=== PATIENT | female | born 1950 | race Caucasian/White ===

== ENCOUNTER 2021-12-19 09:22 | Inpatient (IN) ==
[2021-12-19 09:49] LABS: Hematocrit 29 % (35-47); Mean Corpuscular HGB Conc 34 g/dL (31-36); Mean Corpuscular Hemoglobin 33 pg (27-31); Mean Corpuscular Volume 97 fL (80-97); Mean Platelet Volume 6.9 fL (7.4-10.4); Platelet Count 115 10^3/uL (150-450); Red Blood Count 3.04 10^6 /uL (3.70-4.87); Red Cell Distribution Width 16 % (10-15); White Blood Count 2.5 10^3/uL (3.5-10.8)
[2021-12-19] MEDS ORDERED: Albuterol/Ipratropium NEB.SOL (2.5/0.5 MG) 3 ML NEB.SOLN INH ONE ×2 (09:54)
[2021-12-19] MEDS ORDERED: Lactated Ringers 1000 ml BAG 1,000 ML IV ONE (09:55)
[2021-12-19] MEDS ORDERED: methylPREDNISolone SOD SUCC 40 mg/ml 1 ml VIAL IV ONE (09:55)
[2021-12-19 10:34] LABS: Activated Partial Thrombo Time 24.5 seconds (26.0-38.0); INR 0.94 (0.89-1.11)
[2021-12-19 10:38] LABS: ABS Lymphocytes 0.2 10^3/ul (1.0-4.8); ABS Monocytes 0.3 10^3/ul (0-0.8); ABS Neutrophils 2.1 10^3/ul (1.5-7.7); Eosinophil % 0.1 %; Lymphocyte % 7.8 %; Nucleated Red Blood Cells % 0.1
[2021-12-19 10:40] LABS: Albumin 3.8 g/dL (3.2-5.2); Albumin/Globulin Ratio 1.5 (1-3); Calcium 7.9 mg/dL (8.6-10.3); Globulin 2.5 g/dL (2-4); Potassium 3.5 mmol/L (3.5-5.0); Total Bilirubin 0.4 mg/dL (0.2-1.0); Total Protein 6.3 g/dL (6.4-8.9); eGFR CKD-EPI 82.9 (>60)
[2021-12-19] MEDS ORDERED: Iohexol 350 (CONTRAST) 500 ML MDV IV ONE (11:02)
[2021-12-19 11:33] LABS: High Sensitivity Troponin 1 Hr 13 pg/mL (<15)
[2021-12-19 11:47] LABS: PCO2 Arterial 45 mmHg (35-45); PO2 Arterial 179 mmHg (80-100)
[2021-12-19] MEDS ORDERED: NS 0.9% 1000 ml BAG 1,000 ML IV SCH (14:15)
[2021-12-19] MEDS: Enoxaparin 40 MG/0.4 ML SYR SUBCUT SCH (15:59)
[2021-12-19] MEDS: cefTRIAXone 1 gm/50 mL D5W 1 GM/50 ML BAG IV SCH (16:00)
[2021-12-19] MEDS: Azithromycin 500 mg/250 ml NS 500 MG/250 ML BAG IVPB SCH (16:51)
[2021-12-19] MEDS: methylPREDNISolone SOD SUCC 40 mg/ml 1 ml VIAL IV SCH (21:04)
[2021-12-19] MEDS: Timolol 0.5% OPTH.SOL BTL BOTH EYES SCH (21:11)
[2021-12-19] MEDS: Mometasone/Formoter 200/5 MDI INH SCH (21:17)
[2021-12-20 02:58] LABS: Urine Bacteria Absent (Absent); Urine Red Blood Cell 1+(3-5/hpf) (Absent); Urine Squamous Epithelial Cell Present (Absent); Urine White Blood Cell Trace(0-5/hpf) (Absent)
[2021-12-20 03:22] LABS: Urine Appearance Clear; Urine Bilirubin Negative (Negative); Urine Blood Negative (Negative); Urine Color Yellow; Urine Glucose Negative (Negative); Urine Ketones 1+ (Negative); Urine Nitrite Negative (Negative); Urine Protein 1+(30 mg/dL) (Negative); Urine Specific Gravity 1.018 (1.002-1.030); Urine Urobilinogen Negative (Negative)
[2021-12-20 04:56] LABS: Hematocrit 29 % (35-47); Hemoglobin 9.5 g/dL (12.0-16.0); Mean Corpuscular HGB Conc 33 g/dL (31-36); Mean Corpuscular Hemoglobin 33 pg (27-31); Mean Corpuscular Volume 98 fL (80-97); Platelet Count 103 10^3/uL (150-450); Red Blood Count 2.93 10^6 /uL (3.70-4.87); Red Cell Distribution Width 16 % (10-15); White Blood Count 4.3 10^3/uL (3.5-10.8)
[2021-12-20 05:09] LABS: Calcium 8.1 mg/dL (8.6-10.3)
[2021-12-20 05:14] LABS: eGFR CKD-EPI 89.9 (>60)
[2021-12-20 05:43] LABS: ABS Lymphocytes 0.1 10^3/ul (1.0-4.8); ABS Monocytes 0.2 10^3/ul (0-0.8); Nucleated Red Blood Cells % 0.4
[2021-12-20] MEDS: Mometasone/Formoter 200/5 MDI INH SCH ×2 (08:28→20:11)
[2021-12-20] MEDS: Timolol 0.5% OPTH.SOL BTL BOTH EYES SCH ×2 (08:58→21:00)
[2021-12-20] MEDS: methylPREDNISolone SOD SUCC 40 mg/ml 1 ml VIAL IV SCH ×2 (09:00→21:04)
[2021-12-20] MEDS ORDERED: Aspirin EC 81 mg TAB.EC (enteric coated) PO SCH (09:00)
[2021-12-20] MEDS ORDERED: Albuterol/Ipratropium NEB.SOL (2.5/0.5 MG) 3 ML NEB.SOLN INH PRN (12:59)
[2021-12-20] MEDS: cefTRIAXone 1 gm/50 mL D5W 1 GM/50 ML BAG IV SCH (16:17)
[2021-12-20] MEDS: Enoxaparin 40 MG/0.4 ML SYR SUBCUT SCH (16:18)
[2021-12-20] MEDS: Azithromycin 500 mg/250 ml NS 500 MG/250 ML BAG IVPB SCH (17:31)
[2021-12-20] MEDS: Albuterol/Ipratropium NEB.SOL (2.5/0.5 MG) 3 ML NEB.SOLN INH SCH (20:10)
[2021-12-20] MEDS ORDERED: Ondansetron ODT 4 mg TAB 4 MG TAB SL PRN (22:44)
[2021-12-21 04:58] LABS: Hematocrit 26 % (35-47); Hemoglobin 8.9 g/dL (12.0-16.0); Mean Corpuscular HGB Conc 34 g/dL (31-36); Mean Corpuscular Hemoglobin 33 pg (27-31); Mean Corpuscular Volume 97 fL (80-97); Red Blood Count 2.72 10^6 /uL (3.70-4.87); Red Cell Distribution Width 16 % (10-15)
[2021-12-21 05:22] LABS: ABS Lymphocytes 0.1 10^3/ul (1.0-4.8); ABS Monocytes 0.2 10^3/ul (0-0.8); ABS Neutrophils 3.8 10^3/ul (1.5-7.7); Lymphocyte % 1.9 %; Mean Platelet Volume 7.2 fL (7.4-10.4); Platelet Count 86 10^3/uL (150-450)
[2021-12-21] MEDS: Albuterol/Ipratropium NEB.SOL (2.5/0.5 MG) 3 ML NEB.SOLN INH SCH ×2 (07:07→19:17)
[2021-12-21] MEDS: Mometasone/Formoter 200/5 MDI INH SCH ×2 (07:09→19:17)
[2021-12-21] MEDS: methylPREDNISolone SOD SUCC 40 mg/ml 1 ml VIAL IV SCH ×2 (08:44→20:55)
[2021-12-21] MEDS: Timolol 0.5% OPTH.SOL BTL BOTH EYES SCH ×2 (09:24→21:00)
[2021-12-21] MEDS: cefTRIAXone 1 gm/50 mL D5W 1 GM/50 ML BAG IV SCH (14:51)
[2021-12-21] MEDS: Enoxaparin 40 MG/0.4 ML SYR SUBCUT SCH (14:51)
[2021-12-21] MEDS: Azithromycin 500 mg/250 ml NS 500 MG/250 ML BAG IVPB SCH (16:58)
[2021-12-22 05:14] LABS: ABS Lymphocytes 0.1 10^3/ul (1.0-4.8); ABS Monocytes 0.3 10^3/ul (0-0.8); ABS Neutrophils 3.6 10^3/ul (1.5-7.7); Hematocrit 26 % (35-47); Hemoglobin 8.8 g/dL (12.0-16.0); Lymphocyte % 2.6 %; Mean Corpuscular HGB Conc 34 g/dL (31-36); Mean Corpuscular Hemoglobin 33 pg (27-31); Mean Corpuscular Volume 97 fL (80-97); Platelet Count 72 10^3/uL (150-450); Red Cell Distribution Width 16 % (10-15); White Blood Count 3.9 10^3/uL (3.5-10.8)
[2021-12-22 06:03] LABS: eGFR CKD-EPI 105.8 (>60)
[2021-12-22 06:09] LABS: Calcium 6.1 mg/dL (8.6-10.3)
[2021-12-22] MEDS: Albuterol/Ipratropium NEB.SOL (2.5/0.5 MG) 3 ML NEB.SOLN INH SCH (07:06)
[2021-12-22] MEDS: Mometasone/Formoter 200/5 MDI INH SCH (07:07)
[2021-12-22 07:32] LABS: Calcium 8.4 mg/dL (8.6-10.3); Potassium 3.9 mmol/L (3.5-5.0); eGFR CKD-EPI 96.5 (>60)
[2021-12-22] MEDS: Timolol 0.5% OPTH.SOL BTL BOTH EYES SCH (08:14)
[2021-12-22] MEDS: methylPREDNISolone SOD SUCC 40 mg/ml 1 ml VIAL IV SCH (08:14)
[2021-12-22 08:43] VITALS: BP 160/82
== END 2021-12-22 11:45 | disposition home or self-care (01) | DRG 193 ==
LOC: EDHOLD 09:22 → ED 09:22 → SUATTDRO 14:06 → MED 16:58
PROVIDERS: ADMIT Internal Medicine; ATTEND Hospitalist

== ENCOUNTER 2022-01-02 10:49 | Observation (INO) ==
[2022-01-02] MEDS ORDERED: Levalbuterol 1.25MG/0.5ML NEB.SOL ONE (11:08)
[2022-01-02] MEDS ORDERED: Levalbuterol 1.25MG/0.5ML NEB.SOL INH ONE ×2 (11:10→14:34)
[2022-01-02 12:06] LABS: ABS Lymphocytes 0.4 10^3/ul (1.0-4.8); ABS Monocytes 0.5 10^3/ul (0-0.8); ABS Neutrophils 5.3 10^3/ul (1.5-7.7); Hematocrit 32 % (35-47); Lymphocyte % 5.9 %; Mean Corpuscular HGB Conc 34 g/dL (31-36); Mean Corpuscular Hemoglobin 34 pg (27-31); Mean Corpuscular Volume 99 fL (80-97); Mean Platelet Volume 8.2 fL (7.4-10.4); Nucleated Red Blood Cells % 0.2; Platelet Count 99 10^3/uL (150-450); Red Blood Count 3.24 10^6 /uL (3.70-4.87); Red Cell Distribution Width 17 % (10-15); White Blood Count 6.2 10^3/uL (3.5-10.8)
[2022-01-02 12:19] LABS: Albumin 3.6 g/dL (3.2-5.2); Albumin/Globulin Ratio 1.5 (1-3); Calcium 8.3 mg/dL (8.6-10.3); Globulin 2.4 g/dL (2-4); Magnesium 1.6 mg/dL (1.9-2.7); Potassium 3.1 mmol/L (3.5-5.0); Total Bilirubin 0.7 mg/dL (0.2-1.0); eGFR CKD-EPI 93.3 (>60)
[2022-01-02] MEDS ORDERED: Magnesium Sulfate 2 gm BAG 2 GM/50 ML BAG IVPB ONE ×2 (12:46→16:16)
[2022-01-02] MEDS ORDERED: methylPREDNISolone SOD SUCC 125 mg 2 ML VIAL IV ONE (12:46)
[2022-01-02] MEDS ORDERED: Iohexol 350 (CONTRAST) 500 ML MDV IV ONE (12:59)
[2022-01-02 14:29] LABS: Urine Appearance Clear; Urine Bilirubin Negative (Negative); Urine Blood Negative (Negative); Urine Color Yellow; Urine Glucose Negative (Negative); Urine Ketones Negative (Negative); Urine Nitrite Negative (Negative); Urine Protein Negative (Negative); Urine Urobilinogen Negative (Negative)
[2022-01-02 15:43] LABS: High Sensitivity Troponin 1 Hr 24 pg/mL (<15)
[2022-01-02] MEDS ORDERED: Magnesium Hydroxide LIQ 30 ML UDC PO PRN (16:04)
[2022-01-02] MEDS ORDERED: Potassium Chlor 20 meq TAB.ER PO ONE (16:15)
[2022-01-02 16:47] LABS: C Reactive Protein 11.93 mg/L (<8.01)
[2022-01-02] MEDS ORDERED: Albuterol 2.5mg/3 ml (0.083%) NEB.SOLN INH PRN ×2 (16:50→16:51)
[2022-01-02] MEDS ORDERED: Senna TAB 8.6 mg TAB PO PRN (16:50)
[2022-01-02 16:53] LABS: Urine Specific Gravity > 1.060 (1.002-1.030)
[2022-01-02] MEDS ORDERED: NS 0.9% 1000 ml BAG 1,000 ML IV SCH (17:15)
[2022-01-02] MEDS: Enoxaparin 30 MG/0.3 ML SYR SUBCUT SCH (19:38)
[2022-01-02] MEDS: Fluticasone NASAL SPRAY 50MCG 16 gm SPRAY BTL BOTH NARES SCH (20:34)
[2022-01-02] MEDS: Mometasone/Formoter 200/5 MDI INH SCH (20:35)
[2022-01-02] MEDS: Timolol 0.5% OPTH.SOL BTL BOTH EYES SCH (20:36)
[2022-01-02 23:52] LABS: Venous Bicarbonate HCO3 26.6 mmol/L (24-28)
[2022-01-03 07:05] LABS: ABS Lymphocytes 0.3 10^3/ul (1.0-4.8); ABS Monocytes 0.3 10^3/ul (0-0.8); ABS Neutrophils 3.2 10^3/ul (1.5-7.7); Hematocrit 29 % (35-47); Hemoglobin 9.8 g/dL (12.0-16.0); Lymphocyte % 7.8 %; Mean Corpuscular HGB Conc 34 g/dL (31-36); Mean Corpuscular Hemoglobin 34 pg (27-31); Mean Corpuscular Volume 100 fL (80-97); Mean Platelet Volume 7.7 fL (7.4-10.4); Nucleated Red Blood Cells % 0.1; Platelet Count 88 10^3/uL (150-450); Red Blood Count 2.92 10^6 /uL (3.70-4.87); Red Cell Distribution Width 18 % (10-15); White Blood Count 3.7 10^3/uL (3.5-10.8)
[2022-01-03] MEDS: Mometasone/Formoter 200/5 MDI INH SCH ×2 (07:17→19:41)
[2022-01-03 07:22] LABS: Calcium 8.5 mg/dL (8.6-10.3); Magnesium 2.3 mg/dL (1.9-2.7); Potassium 4.8 mmol/L (3.5-5.0)
[2022-01-03] MEDS: Timolol 0.5% OPTH.SOL BTL BOTH EYES SCH ×2 (09:09→21:40)
[2022-01-03] MEDS: Fluticasone NASAL SPRAY 50MCG 16 gm SPRAY BTL BOTH NARES SCH (09:09)
[2022-01-03] MEDS: Enoxaparin 30 MG/0.3 ML SYR SUBCUT SCH (18:16)
[2022-01-04 07:55] LABS: ABS Lymphocytes 0.5 10^3/ul (1.0-4.8); ABS Monocytes 0.3 10^3/ul (0-0.8); ABS Neutrophils 1.6 10^3/ul (1.5-7.7); Eosinophil % 0.2 %; Hematocrit 29 % (35-47); Hemoglobin 9.7 g/dL (12.0-16.0); Mean Corpuscular HGB Conc 34 g/dL (31-36); Mean Corpuscular Hemoglobin 34 pg (27-31); Mean Corpuscular Volume 99 fL (80-97); Mean Platelet Volume 7.7 fL (7.4-10.4); Platelet Count 88 10^3/uL (150-450); Red Blood Count 2.87 10^6 /uL (3.70-4.87); Red Cell Distribution Width 17 % (10-15); White Blood Count 2.4 10^3/uL (3.5-10.8)
[2022-01-04 07:57] LABS: Calcium 8.4 mg/dL (8.6-10.3); Magnesium 1.7 mg/dL (1.9-2.7); Potassium 3.7 mmol/L (3.5-5.0)
[2022-01-04] MEDS: Mometasone/Formoter 200/5 MDI INH SCH (08:17)
[2022-01-04] MEDS ORDERED: Saline NASAL SPRAY 0.65% BTL BOTH NARES ONE (08:57)
[2022-01-04] MEDS: Fluticasone NASAL SPRAY 50MCG 16 gm SPRAY BTL BOTH NARES SCH (09:56)
[2022-01-04] MEDS: Timolol 0.5% OPTH.SOL BTL BOTH EYES SCH (09:58)
[2022-01-04 10:52] VITALS: BP 144/76
[2022-01-04] MEDS ORDERED: Saline NASAL SPRAY 0.65% BTL BOTH NARES PRN (13:00)
== END 2022-01-04 12:47 | disposition home or self-care (01) ==
LOC: ED 10:49 → MED 10:49 → SUATTDRO 16:04 → MED 22:36
PROVIDERS: ADMIT Student in an Organized Health Care Education/Training Program; ATTEND Hospitalist

== ENCOUNTER 2022-01-08 18:48 | Inpatient (IN) ==
[2022-01-08] MEDS ORDERED: Lactated Ringers 1000 ml BAG 1,000 ML IV ONE (19:20)
[2022-01-08 20:00] LABS: ABS Lymphocytes 0.2 10^3/ul (1.0-4.8); ABS Monocytes 0.2 10^3/ul (0-0.8); ABS Neutrophils 3.4 10^3/ul (1.5-7.7); Hematocrit 27 % (35-47); Lymphocyte % 4.2 %; Mean Corpuscular HGB Conc 33 g/dL (31-36); Mean Corpuscular Hemoglobin 33 pg (27-31); Mean Corpuscular Volume 100 fL (80-97); Mean Platelet Volume 7.9 fL (7.4-10.4); Nucleated Red Blood Cells % 0.2; Platelet Count 82 10^3/uL (150-450); Red Blood Count 2.72 10^6 /uL (3.70-4.87); Red Cell Distribution Width 18 % (10-15); White Blood Count 3.7 10^3/uL (3.5-10.8)
[2022-01-08 20:01] LABS: Urine Appearance Clear; Urine Bilirubin Negative (Negative); Urine Blood 1+ (Negative); Urine Color Yellow; Urine Glucose Negative (Negative); Urine Ketones Negative (Negative); Urine Nitrite Negative (Negative); Urine Protein 1+(30 mg/dL) (Negative); Urine Urobilinogen Negative (Negative)
[2022-01-08 20:09] LABS: Urine Bacteria Absent (Absent); Urine Red Blood Cell 2+(6-10/hpf) (Absent); Urine Squamous Epithelial Cell Present (Absent); Urine White Blood Cell 1+(6-10/hpf) (Absent)
[2022-01-08 20:12] LABS: Activated Partial Thrombo Time 24.5 seconds (26.0-38.0); INR 1.03 (0.89-1.11)
[2022-01-08 21:06] LABS: Albumin 3.2 g/dL (3.2-5.2); Albumin/Globulin Ratio 1.4 (1-3); C Reactive Protein 276.28 mg/L (<8.01); Calcium 8.7 mg/dL (8.6-10.3); Globulin 2.3 g/dL (2-4); Potassium 4.1 mmol/L (3.5-5.0); Total Bilirubin 0.4 mg/dL (0.2-1.0); Total Protein 5.5 g/dL (6.4-8.9)
[2022-01-08] MEDS ORDERED: Iohexol 350 (CONTRAST) 500 ML MDV IV ONE (21:12)
[2022-01-08 21:36] LABS: High Sensitivity Troponin 1 Hr 9 pg/mL (<15)
[2022-01-09] MEDS ORDERED: Saline NASAL SPRAY 0.65% BTL BOTH NARES PRN (00:55)
[2022-01-09] MEDS ORDERED: Albuterol HFA INHALER 8 gm MDI INH PRN (00:56)
[2022-01-09] MEDS: Enoxaparin 40 MG/0.4 ML SYR SUBCUT SCH ×2 (01:20→20:57)
[2022-01-09] MEDS ORDERED: NS 0.9% 500 ml BAG 500 ML IV ONE (02:15)
[2022-01-09] MEDS ORDERED: Labetalol IV 5 MG/ML 20 ml VIAL IV PUSH ONE (02:22)
[2022-01-09] MEDS ORDERED: Morphine 2 MG/ML SYRINGE IV PRN (04:17)
[2022-01-09] MEDS: Mometasone/Formoter 200/5 MDI INH SCH ×2 (07:06→20:30)
[2022-01-09] MEDS: Fluticasone NASAL SPRAY 50MCG 16 gm SPRAY BTL BOTH NARES SCH (07:49)
[2022-01-09] MEDS: Timolol 0.5% OPTH.SOL BTL BOTH EYES SCH ×2 (07:50→20:57)
[2022-01-09] MEDS ORDERED: cefTRIAXone 2 gm/50 mL D5W 2 GM/50 ML BAG IV SCH (09:00)
[2022-01-09] MEDS ORDERED: Gadoteridol (CONTRAST) 279.3 MG/ML 10 ML IV ONE (11:36)
[2022-01-09 12:46] LABS: ABS Lymphocytes 0.1 10^3/ul (1.0-4.8); ABS Monocytes 0.2 10^3/ul (0-0.8); Eosinophil % 0.1 %; Hematocrit 26 % (35-47); Hemoglobin 8.6 g/dL (12.0-16.0); Lymphocyte % 3.1 %; Mean Corpuscular HGB Conc 33 g/dL (31-36); Mean Corpuscular Hemoglobin 33 pg (27-31); Mean Corpuscular Volume 100 fL (80-97); Mean Platelet Volume 7.9 fL (7.4-10.4); Platelet Count 73 10^3/uL (150-450); Red Blood Count 2.57 10^6 /uL (3.70-4.87); Red Cell Distribution Width 18 % (10-15); White Blood Count 4.4 10^3/uL (3.5-10.8)
[2022-01-09 13:13] LABS: Calcium 7.8 mg/dL (8.6-10.3); Potassium 3.6 mmol/L (3.5-5.0); eGFR CKD-EPI 94.3 (>60)
[2022-01-09] MEDS ORDERED: Senna TAB 8.6 mg TAB PO PRN (15:45)
[2022-01-09] MEDS ORDERED: Polyethylene Glycol 3350 17 GM PACKET PO PRN (15:45)
[2022-01-09] MEDS ORDERED: Iohexol 350 (CONTRAST) 500 ML MDV IV ONE (16:04)
[2022-01-09] MEDS: Lidocaine PATCH 5% PATCH TRANSDERM PRN (17:39)
[2022-01-09] MEDS: Oxacillin 2 GM in NS 0.9% 100 ml BAG 100 ML IVPB SCH ×2 (17:51→20:57)
[2022-01-10] MEDS: Oxacillin 2 GM in NS 0.9% 100 ml BAG 100 ML IVPB SCH ×6 (02:14→21:14)
[2022-01-10 06:42] LABS: ABS Lymphocytes 0.3 10^3/ul (1.0-4.8); ABS Monocytes 0.2 10^3/ul (0-0.8); ABS Neutrophils 3.5 10^3/ul (1.5-7.7); Eosinophil % 0.3 %; Hematocrit 24 % (35-47); Hemoglobin 8.2 g/dL (12.0-16.0); Lymphocyte % 8.1 %; Mean Corpuscular HGB Conc 34 g/dL (31-36); Mean Corpuscular Hemoglobin 34 pg (27-31); Mean Corpuscular Volume 99 fL (80-97); Mean Platelet Volume 8.4 fL (7.4-10.4); Nucleated Red Blood Cells % 0.1; Platelet Count 71 10^3/uL (150-450); Red Blood Count 2.41 10^6 /uL (3.70-4.87); Red Cell Distribution Width 18 % (10-15); White Blood Count 4.1 10^3/uL (3.5-10.8)
[2022-01-10 06:55] LABS: Anion Gap 8 mmol/L (2-11); Blood Urea Nitrogen 11 mg/dL (6-24); CO2 Carbon Dioxide 26 mmol/L (22-32); Chloride 103 mmol/L (101-111); Glucose 80 mg/dL (70-100); Magnesium 1.2 mg/dL (1.9-2.7); Potassium 3.2 mmol/L (3.5-5.0); Sodium 137 mmol/L (135-145); eGFR CKD-EPI 96.1 (>60)
[2022-01-10 07:20] LABS: Folate 16.56 ng/mL (5.90-24.80)
[2022-01-10 07:21] LABS: Vitamin B12 > 1450 pg/mL (180-914)
[2022-01-10] MEDS: Mometasone/Formoter 200/5 MDI INH SCH ×2 (07:22→19:41)
[2022-01-10] MEDS ORDERED: Potassium Chlor 20 meq TAB.ER PO ONE (08:12)
[2022-01-10] MEDS ORDERED: Magnesium Sulfate IV 3 GM in NS 0.9% 100 ml BAG 100 ML IVPB ONE (08:12)
[2022-01-10] MEDS: Fluticasone NASAL SPRAY 50MCG 16 gm SPRAY BTL BOTH NARES SCH (09:46)
[2022-01-10] MEDS: Timolol 0.5% OPTH.SOL BTL BOTH EYES SCH ×2 (09:47→21:14)
[2022-01-10] MEDS: Lidocaine PATCH 5% PATCH TRANSDERM PRN (11:21)
[2022-01-10] MEDS: Enoxaparin 40 MG/0.4 ML SYR SUBCUT SCH (20:53)
[2022-01-10] MEDS: Morphine 2 MG/ML SYRINGE IV PRN (22:20)
[2022-01-11] MEDS: Oxacillin 2 GM in NS 0.9% 100 ml BAG 100 ML IVPB SCH ×5 (01:11→18:23)
[2022-01-11 07:13] LABS: C Reactive Protein 357.94 mg/L (<8.01)
[2022-01-11] MEDS: Mometasone/Formoter 200/5 MDI INH SCH ×2 (07:29→19:44)
[2022-01-11] MEDS: Timolol 0.5% OPTH.SOL BTL BOTH EYES SCH ×2 (08:09→19:56)
[2022-01-11] MEDS: Fluticasone NASAL SPRAY 50MCG 16 gm SPRAY BTL BOTH NARES SCH (08:09)
[2022-01-11 08:40] LABS: Calcium 7.7 mg/dL (8.6-10.3); Magnesium 1.6 mg/dL (1.9-2.7); Potassium 3.5 mmol/L (3.5-5.0)
[2022-01-11 08:46] LABS: eGFR CKD-EPI 96.9 (>60)
[2022-01-11] MEDS ORDERED: Magnesium Sulfate 2 gm BAG 2 GM/50 ML BAG IVPB ONE (10:13)
[2022-01-11] MEDS ORDERED: Naloxone 0.4 mg VIAL 0.4 mg/ml 1 ml VIAL ONE (13:15)
[2022-01-11] MEDS ORDERED: Midazolam 5 mg/5 ml VIAL 1 mg/ml 5 ml VIAL (5 mg) ONE (13:15)
[2022-01-11] MEDS ORDERED: Flumazenil 0.5 mg/5 ml 0.1 MG/ML 5 ml VIAL ONE (13:15)
[2022-01-11] MEDS ORDERED: fentaNYL 100 mcg/2 ml 50 MCG/ML VIAL ONE (13:15)
[2022-01-11 17:25] LABS: HDL Cholesterol 31.1 mg/dL
[2022-01-12] MEDS: Oxacillin 2 GM in NS 0.9% 100 ml BAG 100 ML IVPB SCH ×7 (00:28→22:17)
[2022-01-12 05:18] LABS: ABS Lymphocytes 0.4 10^3/ul (1.0-4.8); ABS Monocytes 0.3 10^3/ul (0-0.8); ABS Neutrophils 2.3 10^3/ul (1.5-7.7); Eosinophil % 0.8 %; Hematocrit 24 % (35-47); Hemoglobin 8.1 g/dL (12.0-16.0); Lymphocyte % 12.7 %; Mean Corpuscular HGB Conc 33 g/dL (31-36); Mean Corpuscular Hemoglobin 33 pg (27-31); Mean Corpuscular Volume 100 fL (80-97); Mean Platelet Volume 7.7 fL (7.4-10.4); Nucleated Red Blood Cells % 0.2; Platelet Count 73 10^3/uL (150-450); Red Blood Count 2.43 10^6 /uL (3.70-4.87); Red Cell Distribution Width 18 % (10-15)
[2022-01-12 05:21] LABS: INR 0.97 (0.89-1.11)
[2022-01-12 05:50] LABS: Albumin 2.4 g/dL (3.2-5.2); Albumin/Globulin Ratio 1.1 (1-3); Calcium 7.6 mg/dL (8.6-10.3); Globulin 2.2 g/dL (2-4); Potassium 3.5 mmol/L (3.5-5.0); Total Bilirubin 0.4 mg/dL (0.2-1.0); Total Protein 4.6 g/dL (6.4-8.9); eGFR CKD-EPI 94.3 (>60)
[2022-01-12] MEDS: Mometasone/Formoter 200/5 MDI INH SCH ×2 (08:00→19:59)
[2022-01-12] MEDS: Timolol 0.5% OPTH.SOL BTL BOTH EYES SCH ×2 (10:06→22:19)
[2022-01-12] MEDS: Fluticasone NASAL SPRAY 50MCG 16 gm SPRAY BTL BOTH NARES SCH (10:06)
[2022-01-12] MEDS: Lidocaine PATCH 5% PATCH TRANSDERM PRN (10:15)
[2022-01-12] MEDS ORDERED: fentaNYL 100 mcg/2 ml 50 MCG/ML VIAL ONE (13:54)
[2022-01-12] MEDS: Enoxaparin 40 MG/0.4 ML SYR SUBCUT SCH (19:29)
[2022-01-13] MEDS: Oxacillin 2 GM in NS 0.9% 100 ml BAG 100 ML IVPB SCH ×6 (02:24→23:24)
[2022-01-13 06:00] LABS: ABS Lymphocytes 0.5 10^3/ul (1.0-4.8); ABS Monocytes 0.3 10^3/ul (0-0.8); Hematocrit 23 % (35-47); Hemoglobin 7.7 g/dL (12.0-16.0); Lymphocyte % 16.6 %; Mean Corpuscular HGB Conc 33 g/dL (31-36); Mean Corpuscular Hemoglobin 32 pg (27-31); Mean Corpuscular Volume 99 fL (80-97); Mean Platelet Volume 7.7 fL (7.4-10.4); Nucleated Red Blood Cells % 0.1; Platelet Count 86 10^3/uL (150-450); Red Blood Count 2.37 10^6 /uL (3.70-4.87); Red Cell Distribution Width 17 % (10-15); White Blood Count 2.8 10^3/uL (3.5-10.8)
[2022-01-13] MEDS: Ibuprofen ADULT LIQ 600 MG/30 ML UDC PO SCH ×3 (06:26→23:33)
[2022-01-13 06:43] LABS: Calcium 7.5 mg/dL (8.6-10.3); Potassium 3.2 mmol/L (3.5-5.0)
[2022-01-13] MEDS: Mometasone/Formoter 200/5 MDI INH SCH ×2 (08:27→19:28)
[2022-01-13] MEDS: Timolol 0.5% OPTH.SOL BTL BOTH EYES SCH ×2 (11:20→20:35)
[2022-01-13] MEDS: Fluticasone NASAL SPRAY 50MCG 16 gm SPRAY BTL BOTH NARES SCH (11:20)
[2022-01-13] MEDS ORDERED: Potassium Chlor 10 meq TAB PO ONE (11:33)
[2022-01-13] MEDS ORDERED: Magnesium Hydroxide LIQ 30 ML UDC PO PRN (16:32)
[2022-01-13] MEDS: Enoxaparin 40 MG/0.4 ML SYR SUBCUT SCH (18:28)
[2022-01-13] MEDS: Morphine 2 MG/ML SYRINGE IV PRN (20:29)
[2022-01-14] MEDS: Oxacillin 2 GM in NS 0.9% 100 ml BAG 100 ML IVPB SCH ×6 (02:35→21:53)
[2022-01-14 06:15] LABS: ABS Lymphocytes 0.5 10^3/ul (1.0-4.8); ABS Monocytes 0.3 10^3/ul (0-0.8); ABS Neutrophils 3.5 10^3/ul (1.5-7.7); Eosinophil % 0.3 %; Hematocrit 26 % (35-47); Hemoglobin 8.8 g/dL (12.0-16.0); Lymphocyte % 12.7 %; Mean Corpuscular HGB Conc 34 g/dL (31-36); Mean Corpuscular Hemoglobin 34 pg (27-31); Mean Corpuscular Volume 99 fL (80-97); Mean Platelet Volume 8.4 fL (7.4-10.4); Nucleated Red Blood Cells % 0.1; Platelet Count 79 10^3/uL (150-450); Red Blood Count 2.63 10^6 /uL (3.70-4.87); Red Cell Distribution Width 17 % (10-15); White Blood Count 4.3 10^3/uL (3.5-10.8)
[2022-01-14 06:30] LABS: Calcium 7.7 mg/dL (8.6-10.3); Potassium 3.3 mmol/L (3.5-5.0)
[2022-01-14] MEDS: Mometasone/Formoter 200/5 MDI INH SCH ×2 (07:38→18:37)
[2022-01-14] MEDS: Ibuprofen ADULT LIQ 600 MG/30 ML UDC PO SCH ×3 (07:44→21:57)
[2022-01-14] MEDS: Fluticasone NASAL SPRAY 50MCG 16 gm SPRAY BTL BOTH NARES SCH (09:33)
[2022-01-14] MEDS: Timolol 0.5% OPTH.SOL BTL BOTH EYES SCH ×2 (09:33→21:57)
[2022-01-14] MEDS ORDERED: Potassium Chlor 20 meq TAB.ER PO ONE (13:34)
[2022-01-14 13:46] LABS: C Reactive Protein 233.22 mg/L (<8.01)
[2022-01-14] MEDS: Enoxaparin 40 MG/0.4 ML SYR SUBCUT SCH (18:06)
[2022-01-15] MEDS: Oxacillin 2 GM in NS 0.9% 100 ml BAG 100 ML IVPB SCH ×6 (01:53→21:46)
[2022-01-15 06:10] LABS: ABS Lymphocytes 0.5 10^3/ul (1.0-4.8); ABS Monocytes 0.3 10^3/ul (0-0.8); Eosinophil % 0.3 %; Hematocrit 22 % (35-47); Hemoglobin 7.2 g/dL (12.0-16.0); Lymphocyte % 13.2 %; Mean Corpuscular HGB Conc 34 g/dL (31-36); Mean Corpuscular Hemoglobin 33 pg (27-31); Mean Corpuscular Volume 99 fL (80-97); Mean Platelet Volume 7.8 fL (7.4-10.4); Nucleated Red Blood Cells % 0.2; Platelet Count 80 10^3/uL (150-450); Red Blood Count 2.19 10^6 /uL (3.70-4.87); Red Cell Distribution Width 18 % (10-15); White Blood Count 3.7 10^3/uL (3.5-10.8)
[2022-01-15 06:22] LABS: Calcium 7.4 mg/dL (8.6-10.3); Magnesium 1.6 mg/dL (1.9-2.7); Potassium 3.6 mmol/L (3.5-5.0)
[2022-01-15 06:27] LABS: eGFR CKD-EPI 100.4 (>60)
[2022-01-15] MEDS: Ibuprofen ADULT LIQ 600 MG/30 ML UDC PO SCH (07:27)
[2022-01-15] MEDS: Mometasone/Formoter 200/5 MDI INH SCH ×2 (07:40→18:42)
[2022-01-15] MEDS: Fluticasone NASAL SPRAY 50MCG 16 gm SPRAY BTL BOTH NARES SCH (07:55)
[2022-01-15] MEDS: Timolol 0.5% OPTH.SOL BTL BOTH EYES SCH ×2 (07:55→20:20)
[2022-01-15] MEDS ORDERED: Magnesium Sulfate IV 3 GM in NS 0.9% 100 ml BAG 100 ML IVPB ONE (10:00)
[2022-01-15] MEDS: Enoxaparin 40 MG/0.4 ML SYR SUBCUT SCH (17:57)
[2022-01-16] MEDS: Oxacillin 2 GM in NS 0.9% 100 ml BAG 100 ML IVPB SCH ×6 (01:57→23:17)
[2022-01-16 04:53] LABS: ABS Lymphocytes 0.4 10^3/ul (1.0-4.8); ABS Monocytes 0.2 10^3/ul (0-0.8); ABS Neutrophils 1.7 10^3/ul (1.5-7.7); Eosinophil % 0.6 %; Hematocrit 19 % (35-47); Hemoglobin 6.3 g/dL (12.0-16.0); Lymphocyte % 18.3 %; Mean Corpuscular HGB Conc 33 g/dL (31-36); Mean Corpuscular Hemoglobin 33 pg (27-31); Mean Corpuscular Volume 98 fL (80-97); Mean Platelet Volume 7.8 fL (7.4-10.4); Nucleated Red Blood Cells % 0.1; Platelet Count 68 10^3/uL (150-450); Red Blood Count 1.94 10^6 /uL (3.70-4.87); Red Cell Distribution Width 18 % (10-15); White Blood Count 2.4 10^3/uL (3.5-10.8)
[2022-01-16] MEDS: Mometasone/Formoter 200/5 MDI INH SCH ×3 (07:24→20:54)
[2022-01-16 08:31] LABS: ABS Lymphocytes 0.5 10^3/ul (1.0-4.8); ABS Monocytes 0.2 10^3/ul (0-0.8); ABS Neutrophils 2.4 10^3/ul (1.5-7.7); Eosinophil % 0.5 %; Hematocrit 22 % (35-47); Hemoglobin 7.6 g/dL (12.0-16.0); Lymphocyte % 14.7 %; Mean Corpuscular HGB Conc 35 g/dL (31-36); Mean Corpuscular Hemoglobin 34 pg (27-31); Mean Corpuscular Volume 98 fL (80-97); Mean Platelet Volume 7.8 fL (7.4-10.4); Nucleated Red Blood Cells % 0.1; Platelet Count 71 10^3/uL (150-450); Red Blood Count 2.21 10^6 /uL (3.70-4.87); Red Cell Distribution Width 18 % (10-15); White Blood Count 3.1 10^3/uL (3.5-10.8)
[2022-01-16] MEDS: Timolol 0.5% OPTH.SOL BTL BOTH EYES SCH ×2 (10:05→20:24)
[2022-01-16] MEDS: Fluticasone NASAL SPRAY 50MCG 16 gm SPRAY BTL BOTH NARES SCH (10:06)
[2022-01-16] MEDS ORDERED: Calcium Carb (TUMS) 500 mg CHEW TAB PO PRN (16:57)
[2022-01-16] MEDS: Enoxaparin 40 MG/0.4 ML SYR SUBCUT SCH (18:25)
[2022-01-17] MEDS: Oxacillin 2 GM in NS 0.9% 100 ml BAG 100 ML IVPB SCH ×2 (02:09→06:21)
[2022-01-17] MEDS: Mometasone/Formoter 200/5 MDI INH SCH ×2 (07:07→20:19)
[2022-01-17] MEDS: Timolol 0.5% OPTH.SOL BTL BOTH EYES SCH ×2 (09:08→20:21)
[2022-01-17] MEDS: Fluticasone NASAL SPRAY 50MCG 16 gm SPRAY BTL BOTH NARES SCH (09:09)
[2022-01-17] MEDS: Lidocaine PATCH 5% PATCH TRANSDERM SCH (10:42)
[2022-01-17] MEDS: ceFAZolin 2 GM PREMIX 2 GM/50 ML BAG IVPB SCH ×2 (10:43→18:33)
[2022-01-17] MEDS: Enoxaparin 40 MG/0.4 ML SYR SUBCUT SCH (18:34)
[2022-01-18] MEDS: ceFAZolin 2 GM PREMIX 2 GM/50 ML BAG IVPB SCH ×3 (01:58→18:20)
[2022-01-18 05:50] LABS: Hematocrit 18 % (35-47); Hemoglobin 6.1 g/dL (12.0-16.0); Mean Corpuscular HGB Conc 34 g/dL (31-36); Mean Corpuscular Hemoglobin 33 pg (27-31); Mean Corpuscular Volume 98 fL (80-97); Mean Platelet Volume 7.9 fL (7.4-10.4); Platelet Count 72 10^3/uL (150-450); Red Blood Count 1.86 10^6 /uL (3.70-4.87); Red Cell Distribution Width 18 % (10-15); White Blood Count 2.2 10^3/uL (3.5-10.8)
[2022-01-18 06:13] LABS: ABS Lymphocytes 0.4 10^3/ul (1.0-4.8); ABS Monocytes 0.3 10^3/ul (0-0.8); ABS Neutrophils 1.5 10^3/ul (1.5-7.7); Eosinophil % 0.5 %; Lymphocyte % 17.8 %; Nucleated Red Blood Cells % 0.1
[2022-01-18 06:32] LABS: Albumin 2.1 g/dL (3.2-5.2); Albumin/Globulin Ratio 0.8 (1-3); Calcium 7.4 mg/dL (8.6-10.3); Globulin 2.7 g/dL (2-4); Magnesium 1.5 mg/dL (1.9-2.7); Potassium 2.9 mmol/L (3.5-5.0); Total Bilirubin 0.2 mg/dL (0.2-1.0); Total Protein 4.8 g/dL (6.4-8.9); eGFR CKD-EPI 100.8 (>60)
[2022-01-18] MEDS: Mometasone/Formoter 200/5 MDI INH SCH ×2 (07:32→20:12)
[2022-01-18] MEDS ORDERED: Potassium Chlor 20 meq TAB.ER PO ONE (07:46)
[2022-01-18] MEDS ORDERED: Magnesium Sulfate 2 gm BAG 2 GM/50 ML BAG IVPB ONE (07:47)
[2022-01-18] MEDS: Lidocaine PATCH 5% PATCH TRANSDERM SCH (08:29)
[2022-01-18] MEDS: Fluticasone NASAL SPRAY 50MCG 16 gm SPRAY BTL BOTH NARES SCH (08:30)
[2022-01-18] MEDS: Timolol 0.5% OPTH.SOL BTL BOTH EYES SCH ×2 (08:30→21:49)
[2022-01-18 08:32] LABS: ABS Lymphocytes 0.5 10^3/ul (1.0-4.8); ABS Monocytes 0.3 10^3/ul (0-0.8); ABS Neutrophils 1.4 10^3/ul (1.5-7.7); Eosinophil % 0.5 %; Hematocrit 20 % (35-47); Hemoglobin 6.9 g/dL (12.0-16.0); Lymphocyte % 20.4 %; Mean Corpuscular HGB Conc 34 g/dL (31-36); Mean Corpuscular Hemoglobin 33 pg (27-31); Mean Corpuscular Volume 99 fL (80-97); Mean Platelet Volume 7.7 fL (7.4-10.4); Nucleated Red Blood Cells % 0.1; Platelet Count 76 10^3/uL (150-450); Red Blood Count 2.07 10^6 /uL (3.70-4.87); Red Cell Distribution Width 17 % (10-15); White Blood Count 2.2 10^3/uL (3.5-10.8)
[2022-01-18] MEDS: KCL 20 MEQ/100 ML IVPREMIX 20 MEQ/100 ML BAG IV SCH ×2 (09:15→11:18)
[2022-01-18 11:08] LABS: Rapid COVID-19 Molecular Undetected (Undetected)
[2022-01-18] MEDS: Enoxaparin 40 MG/0.4 ML SYR SUBCUT SCH (18:02)
[2022-01-18] MEDS ORDERED: Iohexol 350 (CONTRAST) 500 ML MDV IV ONE (18:06)
[2022-01-19] MEDS: ceFAZolin 2 GM PREMIX 2 GM/50 ML BAG IVPB SCH ×3 (02:21→18:09)
[2022-01-19 06:09] LABS: ABS Lymphocytes 0.5 10^3/ul (1.0-4.8); ABS Monocytes 0.5 10^3/ul (0-0.8); ABS Neutrophils 1.9 10^3/ul (1.5-7.7); Eosinophil % 0.5 %; Hematocrit 25 % (35-47); Hemoglobin 8.5 g/dL (12.0-16.0); Mean Corpuscular HGB Conc 34 g/dL (31-36); Mean Corpuscular Hemoglobin 31 pg (27-31); Mean Corpuscular Volume 91 fL (80-97); Mean Platelet Volume 8.1 fL (7.4-10.4); Nucleated Red Blood Cells % 0.1; Platelet Count 72 10^3/uL (150-450); Red Blood Count 2.76 10^6 /uL (3.70-4.87); Red Cell Distribution Width 22 % (10-15)
[2022-01-19 06:24] LABS: Albumin 2.4 g/dL (3.2-5.2); Albumin/Globulin Ratio 0.8 (1-3); Calcium 7.8 mg/dL (8.6-10.3); Globulin 2.9 g/dL (2-4); Magnesium 1.7 mg/dL (1.9-2.7); Potassium 3.6 mmol/L (3.5-5.0); Total Bilirubin 0.3 mg/dL (0.2-1.0); Total Protein 5.3 g/dL (6.4-8.9); eGFR CKD-EPI 100.4 (>60)
[2022-01-19] MEDS: Mometasone/Formoter 200/5 MDI INH SCH ×2 (07:21→20:39)
[2022-01-19] MEDS ORDERED: Potassium Chlor 20 meq TAB.ER PO ONE (07:32)
[2022-01-19] MEDS: Lidocaine PATCH 5% PATCH TRANSDERM SCH (09:04)
[2022-01-19] MEDS: Timolol 0.5% OPTH.SOL BTL BOTH EYES SCH ×2 (09:21→19:53)
[2022-01-19] MEDS: Fluticasone NASAL SPRAY 50MCG 16 gm SPRAY BTL BOTH NARES SCH (09:21)
[2022-01-19] MEDS: Pantoprazole VIAL 40 MG VIAL IV SCH (12:32)
[2022-01-19] MEDS: Enoxaparin 40 MG/0.4 ML SYR SUBCUT SCH (18:09)
[2022-01-20] MEDS: ceFAZolin 2 GM PREMIX 2 GM/50 ML BAG IVPB SCH ×3 (02:14→18:19)
[2022-01-20 06:31] LABS: ABS Lymphocytes 0.6 10^3/ul (1.0-4.8); ABS Monocytes 0.4 10^3/ul (0-0.8); ABS Neutrophils 1.4 10^3/ul (1.5-7.7); Eosinophil % 0.3 %; Hematocrit 27 % (35-47); Hemoglobin 8.9 g/dL (12.0-16.0); Lymphocyte % 25.7 %; Mean Corpuscular HGB Conc 33 g/dL (31-36); Mean Corpuscular Hemoglobin 30 pg (27-31); Mean Corpuscular Volume 91 fL (80-97); Mean Platelet Volume 8.8 fL (7.4-10.4); Nucleated Red Blood Cells % 0.1; Platelet Count 78 10^3/uL (150-450); Red Blood Count 2.94 10^6 /uL (3.70-4.87); Red Cell Distribution Width 22 % (10-15); White Blood Count 2.5 10^3/uL (3.5-10.8)
[2022-01-20 06:42] LABS: Calcium 8.1 mg/dL (8.6-10.3); Magnesium 1.7 mg/dL (1.9-2.7); Potassium 3.9 mmol/L (3.5-5.0); eGFR CKD-EPI 99.9 (>60)
[2022-01-20] MEDS: Mometasone/Formoter 200/5 MDI INH SCH ×2 (07:23→20:02)
[2022-01-20] MEDS: Pantoprazole VIAL 40 MG VIAL IV SCH (09:27)
[2022-01-20] MEDS: Lidocaine PATCH 5% PATCH TRANSDERM SCH (09:27)
[2022-01-20] MEDS: Fluticasone NASAL SPRAY 50MCG 16 gm SPRAY BTL BOTH NARES SCH (09:28)
[2022-01-20] MEDS: Timolol 0.5% OPTH.SOL BTL BOTH EYES SCH ×2 (09:29→22:02)
[2022-01-20 10:17] LABS: High Sensitivity Troponin 1 Hr 9 pg/mL (<15)
[2022-01-20 11:21] LABS: C Reactive Protein 123.52 mg/L (<8.01)
[2022-01-20] MEDS: Morphine 2 MG/ML SYRINGE IV PRN (16:35)
[2022-01-20] MEDS: Enoxaparin 40 MG/0.4 ML SYR SUBCUT SCH (18:13)
[2022-01-21] MEDS: Morphine 2 MG/ML SYRINGE IV PRN ×2 (01:27→21:17)
[2022-01-21] MEDS: ceFAZolin 2 GM PREMIX 2 GM/50 ML BAG IVPB SCH ×3 (01:28→18:11)
[2022-01-21] MEDS: Mometasone/Formoter 200/5 MDI INH SCH ×2 (07:27→19:51)
[2022-01-21] MEDS: Lidocaine PATCH 5% PATCH TRANSDERM SCH (09:24)
[2022-01-21] MEDS: Fluticasone NASAL SPRAY 50MCG 16 gm SPRAY BTL BOTH NARES SCH (09:29)
[2022-01-21] MEDS: Pantoprazole VIAL 40 MG VIAL IV SCH (09:30)
[2022-01-21] MEDS: Timolol 0.5% OPTH.SOL BTL BOTH EYES SCH ×2 (09:30→22:13)
[2022-01-21] MEDS: Enoxaparin 40 MG/0.4 ML SYR SUBCUT SCH (18:10)
[2022-01-22] MEDS: ceFAZolin 2 GM PREMIX 2 GM/50 ML BAG IVPB SCH ×3 (02:28→17:32)
[2022-01-22 06:37] LABS: ABS Lymphocytes 0.7 10^3/ul (1.0-4.8); ABS Monocytes 0.5 10^3/ul (0-0.8); ABS Neutrophils 1.4 10^3/ul (1.5-7.7); Eosinophil % 0.4 %; Hematocrit 26 % (35-47); Hemoglobin 8.7 g/dL (12.0-16.0); Mean Corpuscular HGB Conc 34 g/dL (31-36); Mean Corpuscular Hemoglobin 31 pg (27-31); Mean Corpuscular Volume 91 fL (80-97); Mean Platelet Volume 8.2 fL (7.4-10.4); Nucleated Red Blood Cells % 0.1; Platelet Count 90 10^3/uL (150-450); Red Blood Count 2.79 10^6 /uL (3.70-4.87); Red Cell Distribution Width 21 % (10-15); White Blood Count 2.7 10^3/uL (3.5-10.8)
[2022-01-22 06:50] LABS: Calcium 7.9 mg/dL (8.6-10.3); Magnesium 1.6 mg/dL (1.9-2.7); Potassium 3.3 mmol/L (3.5-5.0); eGFR CKD-EPI 102.9 (>60)
[2022-01-22] MEDS ORDERED: Magnesium Sulfate 2 gm BAG 2 GM/50 ML BAG IVPB ONE (07:22)
[2022-01-22] MEDS ORDERED: Potassium Chlor 20 meq TAB.ER PO ONE (07:22)
[2022-01-22] MEDS ORDERED: Potassium Chloride LIQUID 20 MEQ/15 ML LIQUID PO ONE (07:56)
[2022-01-22] MEDS: Pantoprazole VIAL 40 MG VIAL IV SCH (09:00)
[2022-01-22] MEDS: Mometasone/Formoter 200/5 MDI INH SCH ×2 (09:00→19:28)
[2022-01-22] MEDS: Lidocaine PATCH 5% PATCH TRANSDERM SCH (09:05)
[2022-01-22] MEDS: Fluticasone NASAL SPRAY 50MCG 16 gm SPRAY BTL BOTH NARES SCH (09:18)
[2022-01-22] MEDS: Timolol 0.5% OPTH.SOL BTL BOTH EYES SCH ×2 (09:18→20:52)
[2022-01-22] MEDS: Morphine 2 MG/ML SYRINGE IV PRN ×2 (09:24→18:17)
[2022-01-22] MEDS: Enoxaparin 40 MG/0.4 ML SYR SUBCUT SCH (17:32)
[2022-01-23] MEDS: ceFAZolin 2 GM PREMIX 2 GM/50 ML BAG IVPB SCH ×3 (01:18→17:58)
[2022-01-23] MEDS: Morphine 2 MG/ML SYRINGE IV PRN (02:40)
[2022-01-23] MEDS: Mometasone/Formoter 200/5 MDI INH SCH ×2 (07:22→20:51)
[2022-01-23] MEDS: Pantoprazole VIAL 40 MG VIAL IV SCH (08:44)
[2022-01-23] MEDS: Lidocaine PATCH 5% PATCH TRANSDERM SCH (08:44)
[2022-01-23] MEDS: Timolol 0.5% OPTH.SOL BTL BOTH EYES SCH ×2 (08:45→21:57)
[2022-01-23] MEDS: Fluticasone NASAL SPRAY 50MCG 16 gm SPRAY BTL BOTH NARES SCH (08:45)
[2022-01-23] MEDS: Enoxaparin 40 MG/0.4 ML SYR SUBCUT SCH (17:58)
[2022-01-24] MEDS: ceFAZolin 2 GM PREMIX 2 GM/50 ML BAG IVPB SCH ×3 (02:30→17:18)
[2022-01-24] MEDS: Mometasone/Formoter 200/5 MDI INH SCH ×2 (07:12→20:17)
[2022-01-24 09:44] LABS: Phosphorus 3.5 mg/dL (2.5-5.0)
[2022-01-24] MEDS: Pantoprazole VIAL 40 MG VIAL IV SCH (10:12)
[2022-01-24] MEDS: Fluticasone NASAL SPRAY 50MCG 16 gm SPRAY BTL BOTH NARES SCH (10:15)
[2022-01-24] MEDS: Timolol 0.5% OPTH.SOL BTL BOTH EYES SCH ×2 (10:15→20:46)
[2022-01-24] MEDS: Lidocaine PATCH 5% PATCH TRANSDERM SCH (10:15)
[2022-01-24] MEDS ORDERED: Potassium Chlor 20 meq TAB.ER PO ONE (10:31)
[2022-01-24] MEDS ORDERED: Magnesium Sulfate IV 3 GM in NS 0.9% 100 ml BAG 100 ML IVPB ONE (10:31)
[2022-01-24] MEDS: Enoxaparin 40 MG/0.4 ML SYR SUBCUT SCH (17:17)
[2022-01-24] MEDS: Morphine 2 MG/ML SYRINGE IV PRN (20:37)
[2022-01-25] MEDS: Morphine 2 MG/ML SYRINGE IV PRN ×3 (03:27→21:11)
[2022-01-25] MEDS: ceFAZolin 2 GM PREMIX 2 GM/50 ML BAG IVPB SCH ×3 (03:28→18:42)
[2022-01-25 04:36] LABS: Hematocrit 23 % (35-47); Hemoglobin 7.8 g/dL (12.0-16.0); Mean Corpuscular HGB Conc 34 g/dL (31-36); Mean Corpuscular Hemoglobin 31 pg (27-31); Mean Corpuscular Volume 91 fL (80-97); Mean Platelet Volume 7.6 fL (7.4-10.4); Platelet Count 104 10^3/uL (150-450); Red Blood Count 2.53 10^6 /uL (3.70-4.87); Red Cell Distribution Width 21 % (10-15); White Blood Count 2.1 10^3/uL (3.5-10.8)
[2022-01-25 05:05] LABS: ABS Lymphocytes 0.7 10^3/ul (1.0-4.8); ABS Monocytes 0.5 10^3/ul (0-0.8); ABS Neutrophils 0.9 10^3/ul (1.5-7.7); Eosinophil % 0.6 %; Lymphocyte % 33.6 %; Nucleated Red Blood Cells % 0.1
[2022-01-25 05:19] LABS: Calcium 7.8 mg/dL (8.6-10.3); Magnesium 1.8 mg/dL (1.9-2.7); Potassium 3.6 mmol/L (3.5-5.0); eGFR CKD-EPI 94.7 (>60)
[2022-01-25] MEDS: Mometasone/Formoter 200/5 MDI INH SCH ×2 (07:15→19:44)
[2022-01-25] MEDS: Fluticasone NASAL SPRAY 50MCG 16 gm SPRAY BTL BOTH NARES SCH (09:07)
[2022-01-25] MEDS: Timolol 0.5% OPTH.SOL BTL BOTH EYES SCH ×2 (09:10→21:03)
[2022-01-25] MEDS: Pantoprazole VIAL 40 MG VIAL IV SCH (09:10)
[2022-01-25] MEDS: Lidocaine PATCH 5% PATCH TRANSDERM SCH (09:14)
[2022-01-25 11:16] LABS: C Reactive Protein 56.51 mg/L (<8.01)
[2022-01-25] MEDS: Enoxaparin 40 MG/0.4 ML SYR SUBCUT SCH (19:26)
[2022-01-26] MEDS: ceFAZolin 2 GM PREMIX 2 GM/50 ML BAG IVPB SCH ×2 (01:45→10:00)
[2022-01-26] MEDS: Morphine 2 MG/ML SYRINGE IV PRN ×3 (02:07→20:35)
[2022-01-26] MEDS ORDERED: Morphine 2 MG/ML SYRINGE IV ONE (02:59)
[2022-01-26 05:11] LABS: Hematocrit 23 % (35-47); Hemoglobin 7.7 g/dL (12.0-16.0); Mean Corpuscular HGB Conc 33 g/dL (31-36); Mean Corpuscular Hemoglobin 30 pg (27-31); Mean Corpuscular Volume 91 fL (80-97); Mean Platelet Volume 7.2 fL (7.4-10.4); Platelet Count 118 10^3/uL (150-450); Red Blood Count 2.53 10^6 /uL (3.70-4.87); Red Cell Distribution Width 22 % (10-15); White Blood Count 2.1 10^3/uL (3.5-10.8)
[2022-01-26 05:16] LABS: ABS Lymphocytes 0.7 10^3/ul (1.0-4.8); ABS Monocytes 0.4 10^3/ul (0-0.8); ABS Neutrophils 0.9 10^3/ul (1.5-7.7); Eosinophil % 0.5 %; Lymphocyte % 35.7 %
[2022-01-26 05:51] LABS: C Reactive Protein 25.97 mg/L (<8.01); Calcium 7.8 mg/dL (8.6-10.3); Magnesium 1.6 mg/dL (1.9-2.7); Potassium 3.6 mmol/L (3.5-5.0); eGFR CKD-EPI 97.7 (>60)
[2022-01-26] MEDS: Mometasone/Formoter 200/5 MDI INH SCH ×2 (07:28→19:57)
[2022-01-26] MEDS: Lidocaine PATCH 5% PATCH TRANSDERM SCH (09:57)
[2022-01-26] MEDS: Pantoprazole VIAL 40 MG VIAL IV SCH (09:59)
[2022-01-26] MEDS: Fluticasone NASAL SPRAY 50MCG 16 gm SPRAY BTL BOTH NARES SCH (10:15)
[2022-01-26] MEDS: Timolol 0.5% OPTH.SOL BTL BOTH EYES SCH ×2 (10:33→20:53)
[2022-01-26] MEDS ORDERED: Vancomycin per Pharmacy 1 EA NOTE FOLLOW UP PRN (10:47)
[2022-01-26] MEDS ORDERED: Vancomycin 750 MG in NS 0.9% 250 ml 250 ML IVPB ONE (11:00)
[2022-01-26] MEDS ORDERED: Gadoteridol (CONTRAST) 279.3 MG/ML 10 ML IV ONE (12:51)
[2022-01-26] MEDS: Enoxaparin 40 MG/0.4 ML SYR SUBCUT SCH (18:50)
[2022-01-26] MEDS: Vancomycin 750 MG in NS 0.9% 250 ML IVPB SCH (23:27)
[2022-01-27] MEDS: Morphine 2 MG/ML SYRINGE IV PRN ×3 (01:09→14:53)
[2022-01-27 06:48] LABS: ABS Lymphocytes 0.9 10^3/ul (1.0-4.8); ABS Monocytes 0.4 10^3/ul (0-0.8); Eosinophil % 0.6 %; Hematocrit 24 % (35-47); Hemoglobin 8.3 g/dL (12.0-16.0); Lymphocyte % 38.1 %; Mean Corpuscular HGB Conc 35 g/dL (31-36); Mean Corpuscular Hemoglobin 32 pg (27-31); Mean Corpuscular Volume 91 fL (80-97); Nucleated Red Blood Cells % 0.2; Platelet Count 130 10^3/uL (150-450); Red Blood Count 2.64 10^6 /uL (3.70-4.87); Red Cell Distribution Width 22 % (10-15); White Blood Count 2.3 10^3/uL (3.5-10.8)
[2022-01-27] MEDS ORDERED: Magnesium Sulf 4 GM/100 ML IV 4,000 MG/100 ML BAG IVPB ONE (07:38)
[2022-01-27 07:48] LABS: C Reactive Protein 26.45 mg/L (<8.01); Calcium 8.1 mg/dL (8.6-10.3); Magnesium 1.5 mg/dL (1.9-2.7); Potassium 3.6 mmol/L (3.5-5.0); eGFR CKD-EPI 100.4 (>60)
[2022-01-27] MEDS: Mometasone/Formoter 200/5 MDI INH SCH (07:56)
[2022-01-27] MEDS: Pantoprazole VIAL 40 MG VIAL IV SCH (08:26)
[2022-01-27] MEDS: Lidocaine PATCH 5% PATCH TRANSDERM SCH (09:54)
[2022-01-27] MEDS: Fluticasone NASAL SPRAY 50MCG 16 gm SPRAY BTL BOTH NARES SCH (09:55)
[2022-01-27] MEDS: Timolol 0.5% OPTH.SOL BTL BOTH EYES SCH (09:55)
[2022-01-27] MEDS: Vancomycin 750 MG in NS 0.9% 250 ML IVPB SCH (11:32)
[2022-01-27 15:19] VITALS: BP 123/68
[2022-01-28] MEDS ORDERED: Vancomycin Trough Check NOTE FOLLOW UP ONE (10:30)
== END 2022-01-27 15:30 | disposition swing bed (61) | DRG 314 ==
LOC: EDHOLD 18:48 → ED 18:48 → SUATTDRO 01-09 00:33 → MEDTELE 01-09 04:22 → SUATTDRO 01-10 16:52
PROVIDERS: ADMIT Student in an Organized Health Care Education/Training Program; ATTEND Internal Medicine

== ENCOUNTER 2023-03-02 10:29 | Inpatient (IN) ==
[2023-03-02 11:03] LABS: ABS Eosinophils 0.1 10^3/uL (0.0-0.5); ABS Lymphocytes 0.9 10^3/uL (1.0-4.8); ABS Monocytes 0.5 10^3/uL (0.0-0.9); ABS Neutrophils 1.8 10^3/uL (1.5-7.6); ABS Nucleated RBC 0.01 10^3/ul; Eosinophil % 1.7 %; Hematocrit 28.3 % (35-45); Hemoglobin 9.6 g/dL (11.5-14.3); Lymphocyte % 28.1 %; Mean Corpuscular Hemoglobin 33.1 pg (27-33); Mean Corpuscular Hgb Conc 34.1 g/dL (31-36); Nucleated Red Blood Cells % 0.2 %/100WBC (0.0-0.8); Platelet Count 144 10^3/uL (150-450); Red Blood Count 2.91 10^6/uL (3.63-4.92); Red Cell Distribution Width 14.8 % (12-17); White Blood Count 3.4 10^3/uL (3.8-11.8)
[2023-03-02 11:33] LABS: Albumin 3.4 g/dL (3.2-5.2); Albumin/Globulin Ratio 1.6 (1-3); Calcium 8.4 mg/dL (8.6-10.3); Creatinine, Serum 0.99 mg/dL (0.51-0.95); Direct Bilirubin 0.1 mg/dL (0.03-0.18); Globulin 2.1 g/dL (2-4); HDL Cholesterol 41.6 mg/dL; Indirect Bilirubin 0.2 mg/dL (0.3-1.0); Total Bilirubin 0.3 mg/dL (0.2-1.0); Total Protein 5.5 g/dL (6.4-8.9)
[2023-03-02 11:35] LABS: Activated Partial Thrombo Time 27.2 seconds (26.0-38.0); INR 1.05 (0.83-1.13)
[2023-03-02] MEDS ORDERED: Iodixanol (CONTRAST) 320 MG/ML 100 ML SDV IV ONE (12:25)
[2023-03-02 12:47] LABS: Urine Appearance Clear; Urine Bilirubin Negative (Negative); Urine Blood Negative (Negative); Urine Color Yellow; Urine Glucose Negative (Negative); Urine Ketones Negative (Negative); Urine Nitrite Negative (Negative); Urine Protein Negative (Negative); Urine Specific Gravity 1.023 (1.002-1.030); Urine Urobilinogen Negative (Negative)
[2023-03-02] MEDS ORDERED: Albuterol HFA INHALER 8 gm MDI INH PRN (14:54)
[2023-03-02] MEDS ORDERED: Remdesivir 100 mg Vial 200 MG in NS 0.9% 250 ml 210 ML IV ONE (16:30)
[2023-03-02] MEDS: Mometasone/Formoter 200/5 MDI INH SCH (20:56)
[2023-03-03 06:32] LABS: ABS Lymphocytes 0.6 10^3/uL (1.0-4.8); ABS Monocytes 0.5 10^3/uL (0.0-0.9); ABS Neutrophils 1.3 10^3/uL (1.5-7.6); ABS Nucleated RBC 0.01 10^3/ul; Eosinophil % 0.6 %; Hematocrit 31.9 % (35-45); Hemoglobin 10.9 g/dL (11.5-14.3); Lymphocyte % 25.1 %; Mean Corpuscular Hemoglobin 33.1 pg (27-33); Mean Corpuscular Hgb Conc 34.3 g/dL (31-36); Mean Corpuscular Volume 96.4 fL (80-97); Mean Platelet Volume 6.8 fL (7.5-11.2); Nucleated Red Blood Cells % 0.2 %/100WBC (0.0-0.8); Platelet Count 137 10^3/uL (150-450); Red Blood Count 3.31 10^6/uL (3.63-4.92); White Blood Count 2.4 10^3/uL (3.8-11.8)
[2023-03-03 06:52] LABS: Albumin 3.8 g/dL (3.2-5.2); Albumin/Globulin Ratio 1.4 (1-3); Creatinine, Serum 1.06 mg/dL (0.51-0.95); Globulin 2.7 g/dL (2-4); Potassium 3.8 mmol/L (3.5-5.0); Total Bilirubin 0.4 mg/dL (0.2-1.0); Total Protein 6.5 g/dL (6.4-8.9); eGFR CKD-EPI 56.2 (>60)
[2023-03-03] MEDS: Senna TAB 8.6 mg TAB PO SCH (07:59)
[2023-03-03] MEDS: Aspirin EC 81 mg TAB.EC (enteric coated) PO SCH (08:00)
[2023-03-03] MEDS: Mometasone/Formoter 200/5 MDI INH SCH ×2 (08:06→21:14)
[2023-03-03] MEDS ORDERED: Enoxaparin 40 MG/0.4 ML SYR SUBCUT SCH (20:00)
[2023-03-03] MEDS ORDERED: Remdesivir 100 mg Vial 100 MG in NS 0.9% 250 ml 230 ML IV SCH (21:00)
[2023-03-04 06:45] LABS: Hemoglobin 11.1 g/dL (11.5-14.3); Mean Corpuscular Hemoglobin 33.4 pg (27-33); Mean Corpuscular Hgb Conc 34.6 g/dL (31-36); Mean Corpuscular Volume 96.7 fL (80-97); Mean Platelet Volume 7.1 fL (7.5-11.2); Platelet Count 148 10^3/uL (150-450); Red Blood Count 3.31 10^6/uL (3.63-4.92); Red Cell Distribution Width 15.1 % (12-17); White Blood Count 2.8 10^3/uL (3.8-11.8)
[2023-03-04] MEDS: Mometasone/Formoter 200/5 MDI INH SCH (07:41)
[2023-03-04 10:06] VITALS: BP 109/74
[2023-03-04] MEDS: Senna TAB 8.6 mg TAB PO SCH (10:07)
[2023-03-04] MEDS: Aspirin EC 81 mg TAB.EC (enteric coated) PO SCH (10:08)
[2023-03-04] MEDS ORDERED: Benzocaine/Menthol LOZ PO PRN (11:10)
== END 2023-03-04 14:49 | disposition home or self-care (01) | DRG 64 ==
LOC: EDHOLD 10:29 → ED 10:29 → MEDTELE 15:20 → SUATTDRO 03-03 11:11
PROVIDERS: ADMIT Internal Medicine; ATTEND Hospitalist

== ENCOUNTER 2023-08-08 08:49 | Inpatient (IN) ==
[2023-08-08 11:27] LABS: ABS Lymphocytes 1.3 10^3/uL (1.0-4.8); ABS Monocytes 0.4 10^3/uL (0.0-0.9); ABS Neutrophils 7.5 10^3/uL (1.5-7.6); Eosinophil % 0.2 %; Hematocrit 33.8 % (35-45); Hemoglobin 11.4 g/dL (11.5-14.3); Lymphocyte % 13.7 %; Mean Corpuscular Hemoglobin 32.3 pg (27-33); Mean Corpuscular Hgb Conc 33.6 g/dL (31-36); Mean Corpuscular Volume 96.1 fL (80-97); Mean Platelet Volume 7.2 fL (7.5-11.2); Platelet Count 210 10^3/uL (150-450); Red Blood Count 3.51 10^6/uL (3.63-4.92); Red Cell Distribution Width 15.2 % (12-17); White Blood Count 9.3 10^3/uL (3.8-11.8)
[2023-08-08 12:48] LABS: ALT 14 U/L (7-52); AST 18 U/L (13-39); Albumin 3.7 g/dL (3.2-5.2); Albumin/Globulin Ratio 1.3 (1-3); Alkaline Phosphatase 60 U/L (35-149); Anion Gap 11 mmol/L (2-16); Blood Urea Nitrogen 12 mg/dL (6-24); CO2 Carbon Dioxide 28 mmol/L (22-32); Calcium 8.8 mg/dL (8.6-10.3); Chloride 99 mmol/L (101-111); Creatinine, Serum 1.62 mg/dL (0.51-0.95); Globulin 2.9 g/dL (2-4); Glucose 89 mg/dL (70-100); Lipase < 10 U/L (11.0-82.0); Potassium 3.8 mmol/L (3.5-5.0); Sodium 138 mmol/L (135-145); Total Bilirubin 0.7 mg/dL (0.2-1.0); Total Protein 6.6 g/dL (6.4-8.9); eGFR CKD-EPI 33.8 (>60)
[2023-08-08] MEDS: Iodixanol (CONTRAST) 320 MG/ML 100 ML SDV IV ONE (13:57)
[2023-08-08 14:03] LABS: Urine Appearance Turbid; Urine Bilirubin Negative (Negative); Urine Blood 1+ (Negative); Urine Color Yellow; Urine Glucose Negative (Negative); Urine Ketones Trace (Negative); Urine Nitrite Negative (Negative); Urine Protein 3+ (>=300 mg/dL) (Negative); Urine Specific Gravity 1.021 (1.002-1.030); Urine Urobilinogen Negative (Negative)
[2023-08-08 14:07] LABS: Urine Bacteria Absent /HPF (Absent); Urine Red Blood Cell 2+(6-10/hpf) /HPF (0-Trace); Urine Squamous Epithelial Cell Present /HPF (Absent); Urine Transitional Epithelial Present /HPF (Absent); Urine White Blood Cell 2+(11-20/hpf) /HPF (0-Trace)
[2023-08-08] MEDS: Lactated Ringers 1000 ml BAG 1,000 ML IV ONE (15:53)
[2023-08-08 16:09] LABS: C Reactive Protein 399.21 mg/L (<8.01)
[2023-08-08] MEDS: Enoxaparin 40 MG/0.4 ML SYR SUBCUT SCH (16:46)
[2023-08-08] MEDS: NF: BUDESONIDE/GLYCOPYR/FORMOTEROL MDI (NF) INH SCH (19:14)
[2023-08-08] MEDS: Albuterol/Ipratropium NEB.SOL (2.5/0.5 MG) 3 ML NEB.SOLN INH SCH (19:33)
[2023-08-09 06:50] LABS: Hematocrit 29.7 % (35-45); Hemoglobin 10.1 g/dL (11.5-14.3); Mean Corpuscular Hemoglobin 32.3 pg (27-33); Mean Corpuscular Hgb Conc 33.9 g/dL (31-36); Mean Corpuscular Volume 95.4 fL (80-97); Mean Platelet Volume 7.5 fL (7.5-11.2); Platelet Count 190 10^3/uL (150-450); Red Blood Count 3.11 10^6/uL (3.63-4.92); Red Cell Distribution Width 15.1 % (12-17); White Blood Count 11.4 10^3/uL (3.8-11.8)
[2023-08-09 07:56] LABS: Creatinine, Serum 1.51 mg/dL (0.51-0.95); Potassium 3.7 mmol/L (3.5-5.0); eGFR CKD-EPI 36.7 (>60)
[2023-08-09] MEDS ORDERED: BUDESONIDE/GLYCOPYR/FORMOTEROL MDI (NF) INH SCH (09:00)
[2023-08-09] MEDS ORDERED: guaiFENesin 100 mg/5 ml LIQ unit dose cup PO PRN (09:02)
[2023-08-09] MEDS: Lactated Ringers 1000 ml BAG 500 ML IV ONE ×2 (10:21→18:19)
[2023-08-09] MEDS: Lactated Ringers 1000 ml BAG 1,000 ML IV SCH ×2 (10:22→11:05)
[2023-08-09] MEDS: cefTRIAXone 2 gm/50 mL D5W 2 GM/50 ML BAG IV SCH (11:21)
[2023-08-09 11:44] LABS: Albumin 2.9 g/dL (3.2-5.2); Albumin/Globulin Ratio 1.2 (1-3); C Reactive Protein 454.93 mg/L (<8.01); Calcium 7.8 mg/dL (8.6-10.3); Creatinine, Serum 1.52 mg/dL (0.51-0.95); Globulin 2.4 g/dL (2-4); Potassium 3.5 mmol/L (3.5-5.0); Total Bilirubin 0.6 mg/dL (0.2-1.0); Total Protein 5.3 g/dL (6.4-8.9); eGFR CKD-EPI 36.4 (>60)
[2023-08-09] MEDS: metroNIDAZOLE IV 500 MG/100ML 500 MG/100 ML BAG IVPB SCH (11:55)
[2023-08-09] MEDS ORDERED: Vancomycin per Pharmacy 1 EA NOTE FOLLOW UP SCH (13:00)
[2023-08-09] MEDS: Morphine PF AMP (1 MG/ML) 10 MG/10 ML AMP IV ONE (13:56)
[2023-08-09] MEDS: Morphine 2 MG/ML SYRINGE ONE (14:05)
[2023-08-09] MEDS: Vancomycin 1,000 MG in NS 0.9% 250 ml 250 ML IVPB ONE (14:18)
[2023-08-09 14:23] LABS: Magnesium 1.5 mg/dL (1.9-2.7)
[2023-08-09] MEDS: Magnesium Sulfate 2 gm BAG 2 GM/50 ML BAG IVPB ONE (16:44)
[2023-08-09] MEDS: Morphine 2 MG/ML SYRINGE IV ONE (16:51)
[2023-08-09] MEDS: Lactated Ringers 1000 ml BAG 1,000 ML IV ONE (17:51)
[2023-08-09] MEDS: Magnesium Sulfate IV 1GM/100ML 1 GM/100 ML BAG IV ONE (17:51)
[2023-08-09] MEDS: Norepinephrine 4 MG/250mL D5W 4,000 MCG/250 ML BAG IV SCH (19:08)
[2023-08-09] MEDS: Norepinephrine 4 MG/250mL D5W 4,000 MCG/250 ML BAG IV ONE (20:12)
[2023-08-09 21:13] LABS: Anion Gap 8 mmol/L (2-16); Blood Urea Nitrogen 18 mg/dL (6-24); CO2 Carbon Dioxide 24 mmol/L (22-32); Calcium 7.4 mg/dL (8.6-10.3); Chloride 98 mmol/L (101-111); Creatinine, Serum 1.58 mg/dL (0.51-0.95); Glucose 182 mg/dL (70-100); Sodium 130 mmol/L (135-145); eGFR CKD-EPI 34.8 (>60)
[2023-08-10 05:07] LABS: Calcium 7.3 mg/dL (8.6-10.3); Creatinine, Serum 1.98 mg/dL (0.51-0.95); Magnesium 2.5 mg/dL (1.9-2.7); eGFR CKD-EPI 26.5 (>60)
[2023-08-10 05:38] LABS: Hematocrit 32.6 % (35-45); Hemoglobin 10.9 g/dL (11.5-14.3); Mean Corpuscular Hemoglobin 32.1 pg (27-33); Mean Corpuscular Hgb Conc 33.3 g/dL (31-36); Mean Corpuscular Volume 96.2 fL (80-97); Mean Platelet Volume 7.7 fL (7.5-11.2); Platelet Count 235 10^3/uL (150-450); Red Blood Count 3.39 10^6/uL (3.63-4.92); White Blood Count 14.9 10^3/uL (3.8-11.8)
[2023-08-10 05:51] LABS: ABS Eosinophils 0.1 10^3/uL (0.0-0.5); ABS Lymphocytes 1.1 10^3/uL (1.0-4.8); ABS Monocytes 0.6 10^3/uL (0.0-0.9); ABS Neutrophils 13.2 10^3/uL (1.5-7.6); ABS Nucleated RBC 0.01 10^3/ul; Anisocytosis 1+; Eosinophil % 0.9 %; Nucleated Red Blood Cells % 0.1 %/100WBC (0.0-0.8); Polychromasia 1+
[2023-08-10] MEDS ORDERED: SPIRIVA Respimat (tiotropium) 2.5 mcg/inh Inhaler INH SCH (09:00)
[2023-08-10] MEDS: Lactated Ringers 1000 ml BAG 1,000 ML IV SCH ×3 (09:55→10:26)
[2023-08-10] MEDS: Lactated Ringers 1000 ml BAG 500 ML IV ONE ×4 (09:55→15:54)
[2023-08-10] MEDS: Ondansetron 4 mg VIAL 2 MG/ML 2 ml VIAL IV PRN (10:05)
[2023-08-10] MEDS: cefTRIAXone 2 gm/50 mL D5W 2 GM/50 ML BAG IV SCH (11:24)
[2023-08-10] MEDS ORDERED: cefTRIAXone 2 gm/50 mL D5W 2 GM/50 ML BAG IV SCH (12:00)
[2023-08-10] MEDS: Vancomycin 750 MG in NS 0.9% 250 ML IVPB SCH (14:25)
[2023-08-10 15:36] LABS: Urine Appearance Turbid; Urine Bilirubin Negative (Negative); Urine Blood 2+ (Negative); Urine Color Yellow; Urine Glucose Negative (Negative); Urine Ketones Negative (Negative); Urine Nitrite Negative (Negative); Urine Protein 2+ (>=100 mg/dL) (Negative); Urine Specific Gravity 1.022 (1.002-1.030); Urine Urobilinogen Negative (Negative)
[2023-08-10 15:39] LABS: Urine Bacteria 1+ /HPF (Absent); Urine Red Blood Cell 1+(3-5/hpf) /HPF (0-Trace); Urine White Blood Cell Trace(0-5/hpf) /HPF (0-Trace)
[2023-08-10 15:44] LABS: Potassium Redraw 3.9 mmol/L (3.5-5.0)
[2023-08-10 15:58] LABS: TSH Ultra Thyroid Stim Horm 1.85 mcIU/mL (0.34-5.60)
[2023-08-10] MEDS: Enoxaparin 30 MG/0.3 ML SYR SUBCUT SCH (17:25)
[2023-08-10] MEDS: Albuterol/Ipratropium NEB.SOL (2.5/0.5 MG) 3 ML NEB.SOLN INH PRN (17:46)
[2023-08-10] MEDS: Albumin Human 25% 25 GM/100 ML BTL IV ONE (18:15)
[2023-08-10] MEDS: Mometasone/Formoter 200/5 MDI INH SCH (20:07)
[2023-08-11] MEDS: Albumin Human 25% 25 GM/100 ML BTL IV ONE (01:08)
[2023-08-11 05:02] LABS: Hematocrit 24.9 % (35-45); Hemoglobin 8.5 g/dL (11.5-14.3); Mean Corpuscular Hemoglobin 32.6 pg (27-33); Mean Corpuscular Hgb Conc 34.2 g/dL (31-36); Mean Corpuscular Volume 95.2 fL (80-97); Mean Platelet Volume 7.3 fL (7.5-11.2); Platelet Count 200 10^3/uL (150-450); Red Blood Count 2.61 10^6/uL (3.63-4.92); Red Cell Distribution Width 15.4 % (12-17); White Blood Count 8.1 10^3/uL (3.8-11.8)
[2023-08-11 05:34] LABS: Calcium 7.1 mg/dL (8.6-10.3); Creatinine, Serum 2.48 mg/dL (0.51-0.95); Magnesium 2.3 mg/dL (1.9-2.7); Potassium 3.6 mmol/L (3.5-5.0); eGFR CKD-EPI 20.3 (>60)
[2023-08-11 06:03] LABS: ABS Eosinophils 0.2 10^3/uL (0.0-0.5); ABS Lymphocytes 0.7 10^3/uL (1.0-4.8); ABS Monocytes 0.3 10^3/uL (0.0-0.9); ABS Neutrophils 6.9 10^3/uL (1.5-7.6); ABS Nucleated RBC 0.01 10^3/ul; Eosinophil % 2.7 %; Lymphocyte % 8.7 %; Nucleated Red Blood Cells % 0.2 %/100WBC (0.0-0.8); RBC Morphology Normal (Normal)
[2023-08-11] MEDS: Albuterol/Ipratropium NEB.SOL (2.5/0.5 MG) 3 ML NEB.SOLN INH SCH (10:34)
[2023-08-11] MEDS: Lactated Ringers 1000 ml BAG 500 ML IV ONE ×2 (13:56→22:45)
[2023-08-11] MEDS ORDERED: Lactated Ringers 1000 ml BAG 1,000 ML IV SCH (14:00)
[2023-08-11] MEDS: Lactated Ringers 1000 ml BAG 1,000 ML IV SCH (14:28)
[2023-08-11 16:38] LABS: Albumin 3.2 g/dL (3.2-5.2); Albumin/Globulin Ratio 2.1 (1-3); Direct Bilirubin 0.1 mg/dL (0.03-0.18); Globulin 1.5 g/dL (2-4); Indirect Bilirubin 0.2 mg/dL (0.3-1.0); Total Bilirubin 0.3 mg/dL (0.2-1.0); Total Protein 4.7 g/dL (6.4-8.9)
[2023-08-12] MEDS: Lactated Ringers 1000 ml BAG 1,000 ML IV SCH (02:54)
[2023-08-12 05:24] LABS: Hematocrit 26.8 % (35-45); Mean Corpuscular Hemoglobin 32.5 pg (27-33); Mean Corpuscular Hgb Conc 33.5 g/dL (31-36); Mean Corpuscular Volume 97.1 fL (80-97); Mean Platelet Volume 7.1 fL (7.5-11.2); Platelet Count 199 10^3/uL (150-450); Red Blood Count 2.76 10^6/uL (3.63-4.92); Red Cell Distribution Width 15.8 % (12-17); White Blood Count 8.8 10^3/uL (3.8-11.8)
[2023-08-12 05:57] LABS: Anion Gap 7 mmol/L (2-16); Blood Urea Nitrogen 32 mg/dL (6-24); C Reactive Protein 388.06 mg/L (<8.01); CO2 Carbon Dioxide 25 mmol/L (22-32); Calcium 6.8 mg/dL (8.6-10.3); Chloride 100 mmol/L (101-111); Creatinine, Serum 3.45 mg/dL (0.51-0.95); Glucose 100 mg/dL (70-100); Sodium 132 mmol/L (135-145); eGFR CKD-EPI 13.6 (>60)
[2023-08-12 07:44] LABS: Potassium, Whole Blood 3.5 mmol/L (3.4-4.5)
[2023-08-12 08:04] LABS: ABS Eosinophils 0.2 10^3/uL (0.0-0.5); ABS Lymphocytes 0.9 10^3/uL (1.0-4.8); ABS Monocytes 0.4 10^3/uL (0.0-0.9); ABS Neutrophils 7.2 10^3/uL (1.5-7.6); ABS Nucleated RBC 0.06 10^3/ul; Eosinophil % 2.7 %; Lymphocyte % 10.7 %; Nucleated Red Blood Cells % 0.7 %/100WBC (0.0-0.8); RBC Morphology Normal (Normal)
[2023-08-12] MEDS: CALCIUM GLUCONATE 1GM/50ML NS 1 GM/50 ML BAG IV ONE (09:27)
[2023-08-12] MEDS: Metoprolol Tartrate 5 mg VIAL 5 ml VIAL (1 mg/ml) IV PRN (11:25)
[2023-08-12 11:51] LABS: Magnesium 2.1 mg/dL (1.9-2.7)
[2023-08-12] MEDS: Albumin Human 25% 25 GM/100 ML BTL IV ONE (11:52)
[2023-08-12] MEDS: Potassium Chlor 20 meq TAB.ER PO ONE (11:52)
[2023-08-12] MEDS: Metoprolol Tartrate 5 mg VIAL 5 ml VIAL (1 mg/ml) ONE ×3 (11:57→17:49)
[2023-08-12] MEDS: Furosemide 40 mg/4 ml IV VIAL IV ONE (13:13)
[2023-08-12] MEDS: cefTRIAXone 2 gm/50 mL D5W 2 GM/50 ML BAG IV SCH (13:20)
[2023-08-12] MEDS ORDERED: Vancomycin Trough Check NOTE FOLLOW UP ONE (13:30)
[2023-08-12 15:49] LABS: Activated Partial Thrombo Time 30.8 seconds (26.0-38.0)
[2023-08-12 15:52] LABS: Schistocytes ABSENT
[2023-08-12 15:53] LABS: Platelet Count 186 10^3/ul (150-450)
[2023-08-12 16:16] LABS: Urine Creatinine Concentration 70.27 mg/dL (20.00-320.00); Urine TP Creat Ratio 6.93 mg/mg
[2023-08-12 16:53] LABS: Hepatitis B Surface Antigen Nonreactive (Nonreactive)
[2023-08-12 16:58] LABS: Hepatitis A Ab IgM Negative (Negative)
[2023-08-12 16:59] LABS: Hepatitis B Core IgM Nonreactive (Nonreactive)
[2023-08-12 17:10] LABS: Hepatitis C Antibody Negative (Negative)
[2023-08-12] MEDS: PHENYLEPHRINE DRIP IVPREMIX 50 MG/250 ML BAG IV SCH (17:40)
[2023-08-12] MEDS ORDERED: Metoprolol Tartrate 5 mg VIAL 5 ml VIAL (1 mg/ml) IV PRN (17:49)
[2023-08-12] MEDS: Norepinephrine 4 MG/250mL D5W 4,000 MCG/250 ML BAG IV ONE (18:08)
[2023-08-12] MEDS ORDERED: LORazepam 2 mg VIAL 1 ml IV PUSH PRN (18:37)
[2023-08-12] MEDS ORDERED: Lorazepam PYXIS KEY PRN (18:42)
[2023-08-12] MEDS: Morphine 2 MG/ML SYRINGE IV PRN (18:55)
[2023-08-12] MEDS: Morphine 4 MG/ML VIAL (1 ml) ONE (19:16)
[2023-08-12 19:22] VITALS: BP 104/86
[2023-08-13] MEDS: HYDROmorphone 0.5 MG/0.5 ML SYRINGE IV SLOW PU PRN (09:03)
[2023-08-13] MEDS ORDERED: HYDROmorphone 0.5 MG/0.5 ML SYRINGE IV SLOW PU PRN (14:48)
== END 2023-08-13 15:01 | DRG 871 ==
LOC: ED 08:49 → EDHOLD 08:49 → SUATTDRO 16:22 → EDHOLD 17:01 → SSU 18:18 → ICU 08-09 10:45
PROVIDERS: ADMIT Internal Medicine; ATTEND Internal Medicine